=== PATIENT | female | born 1990 | race Hispanic/Latino ===

== ENCOUNTER 2018-01-25 10:25 | Emergency (ER) | payer SELFPAY ==
[2018-01-25] MEDS ORDERED: ONDANSETRON HCL 4 MG/2 ML VIAL ONE (10:43)
[2018-01-25] MEDS ORDERED: KETOROLAC TROMETHAMINE 30MG/ML ONE (10:44)
[2018-01-25 11:13] LABS: BASOPHILS % (AUTO) 0.5 % (0.0-5.0); EOSINOPHILS % (AUTO) 1.3 % (0.0-8.0); HEMATOCRIT 44.7 % (36-48); LYMPHOCYTES % (AUTO) 52.7 % (21.0-51.0); MEAN CORPUSCULAR HGB CONC 35.2 g/dL (32.0-36.0); MEAN CORPUSCULAR VOLUME 82.3 fL (79-99); MONOCYTES % (AUTO) 5.3 % (3.0-13.0); NEUTROPHILS % (AUTO) 40.2 % (40.0-77.0); PLATELET COUNT (AUTO) 316 K/uL (130-400); RED BLOOD CELL COUNT(AUTO) 5.44 MIL/uL (4.00-5.50); RED CELL DISTRIBUTION WIDTH 12.4 % (11.0-15.5); WHITE BLOOD COUNT (AUTO) 7.9 K/uL (4.8-10.8)
[2018-01-25 11:24] LABS: CREATININE 0.5 mg/dL (0.5-1.5); POTASSIUM 3.9 mmol/L (3.5-5.1)
[2018-01-25 11:24] LABS: APPEARANCE,URINE Clear (CLEAR); BILIRUBIN,URINE Negative (NEGATIVE); COLOR,URINE Yellow (YELLOW); GLUCOSE, URINE (UA) >=1000 mg/dL (NEGATIVE); KETONES,URINE >=80 mg/dL (NEGATIVE); LEUKOCYTE ESTERASE ,URINE Negative (NEGATIVE); NITRATE,URINE Negative (NEGATIVE); OCCULT BLOOD,URINE Negative (NEGATIVE); PH,URINE 5.5 (5.0-8.0); PROTEIN,URINE Negative (NEGATIVE)
[2018-01-25 11:29] LABS: ALBUMIN 3.7 g/dL (3.5-5.0); BILIRUBIN,DIRECT 0.1 mg/dL (0.0-0.3); BILIRUBIN,TOTAL 0.6 mg/dL (0.2-1.0); TOTAL PROTEIN, SERUM 8.4 g/dL (6.0-8.3)
[2018-01-25 11:30] LABS: AMPHET/METH SCREEN,URINE NEGATIVE (NEGATIVE); BARBITURATE SCREEN, URINE NEGATIVE (NEGATIVE); BENZODIAZEPINES SCREEN,URINE NEGATIVE (NEGATIVE); CANNABINOID SCREEN,URINE NEGATIVE (NEGATIVE); COCAINE SCREEN,URINE NEGATIVE (NEGATIVE); OPIATE SCREEN,URINE NEGATIVE (NEGATIVE); PHENCYCLIDINE SCREEN,URINE NEGATIVE (NEGATIVE)
[2018-01-25 11:39] LABS: BACTERIA,URINE Rare /HPF (None Seen); MUCUS,URINE Moderate LPF (None Seen); RBC,URINE None Seen /HPF (0-1); WBC,URINE None Seen /HPF (0-1); YEAST,URINE BUDDING Few /HPF (None Seen)
== END 2018-01-25 14:22 | disposition home or self-care (01) ==
LOC: EDH 10:25
DX: K80.50 Calculus of bile duct without cholangitis or cholecystitis without obstruction (principal)
CPT/HCPCS: 36415; 76705; 80048; 80076; 80305; 81001; 83690; 84702; 85025; 96374; 96375; 99285; J1885; J2405

== ENCOUNTER 2025-02-19 23:21 | Emergency (ER) | payer OTHER ==
[~2025-02-19] VITALS: Ht 152.4 cm; Wt 72.1 kg
[2025-02-20] MEDS ORDERED: ACYC-138 PO (00:21)
[2025-02-20] MEDS ORDERED: GABA-529 PO (00:21)
[2025-02-20] MEDS ORDERED: PRED20TA3 PO (00:21)
--- NOTE | 2025-02-20 00:21 | ERN ---
ED Note History of Present Illness Stated Complaint: C/O PAIN TO LEFT KNEE WITH BURNING SENSATION Chief Complaint: Knee Injury/Swelling Time Seen by MD: 23:24 Time Seen by Midlevel: 23:24 Dictation: The patient is a 34-year-old female with a history of diabetes who presents to the emergency department with complaints of burning to left knee and a rash. Patient reports she also has a rash to her upper leg and groin area. Patient reports symptoms started a week ago. Patient initially reported that she initially had sciatic nerve pain and then her knee started hurting and then she developed the blisters. Patient denies any fevers, denies any trauma Allergies: Coded Allergies: morphine (Unverified Allergy, Unknown, 02/19/25) Home Meds Active Scripts Gabapentin (Gabapentin) 100 Mg Capsule, 1 CAP PO TID for 30 Days, #90 CAP 0 Refi lls Prov:NAYA WANG [facility] 02/20/25 Prednisone (Prednisone) 20 Mg Tablet, 1 TAB PO DAILY for 5 Days, #5 TAB 0 Refills Prov:NAYA WANG [facility] 02/20/25 Acyclovir (Acyclovir) 800 Mg Tablet, 1 TAB PO 5XDAY for 6 Days, #35 TAB 0 Refills Prov:NAYA WANG [facility] 02/20/25 Past Medical History Past Medical History: Diabetes-Type II, High Cholesterol, Other Additional Past Medical Hx: HX OF SCIATIC NERVE PAIN Surgical History: Cholecystectomy LMP: Feb 16, 2025 RN Note Reviewed/Agreed w/PFSH: Yes Review of System Dictation Constitutional: Negative for fever,chills, and weight loss Eyes: Negative for injury, pain,redness, and discharge ENT: Negative for injury,pain or swelling Cardiovascular: Negative for chest pain, palpitations, and edema Respiratory: Negative for shortness of breath, cough, and wheezing, Abdomen/GI: Negative for abdominal pain, nausea, vomiting, diarrhea, and constipation Back: Negative for injury and pain : Negative for injury, bleeding and discharge MS/Extremity: Negative for injury and deformity Skin: Negative discoloration positive for rash Neuro: Negative for headache, weakness, numbness, tingling, and seizure Psych: Negative for suicide ideation, homicidal ideation, and hallucinations Initial Vital Sign VS Vital Signs Date Time Temp Pulse Resp B/P (MAP) Pulse Ox O2 Delivery O2 Flow Rate FiO2 02/19/25 23:23 97.0 89 20 119/81 96 Room Air 02/19/25 23:50 0 21 Physical Exam Dictation Vital Signs reviewed General Appearance: Alert, oriented x 3, no acute distress, well developed, nourished. Head and Face: non-traumatic. Eyes: PERRL, pink conjunctivas, eyelid no trauma, anterior chamber with arcus senilis. Ears: Pinnas intact and no signs of trauma or erythema ear canals clear and no discharge TM no erythema Nose: No discharge, no bleeding. Oropharynx: Mouth normal, tongue pink. pharynx clear,no erythema, tonsils no exudates, no abscesses noted, mucous membrane moist Neck: Supple, non-tender, no thyromegaly, no masses, no JVD, no bruits Breast:Deferred Chest:No tenderness, no crepitus, no paradoxical movement, no retractions Lungs:Clear, well-ventilated, symmetric, no rales, no wheezing, no rhonchi, no stridor, good breath sounds bilaterally Heart: Regular rate, regular rhythm, no murmur, no gallops Vascular: no peripheral edema, Abdomen: Soft, positive bowel sounds, nondistended, no guarding, nontender, no rebound, no masses no hepatomegaly, no splenomegaly, no Carreno's sign, no hernias. Rectal: Deferred Genital: Deferred Neurological: Normal speech, motor function intact, sensory function intact Musculoskeletal: Neck nontender, full range of motion, back nontender, full range of motion, Extremities: nontender, full range of motion Skin: Color pink, dry, no turgor, no lacerations, no abrasions, no contusions. Multiple blisters noted to left inner knee, no drainage, blisters noted to upper thigh and groin area Lymphatic: Deferred Results (Laboratory/Radiology) Laboratory/Radiology Laboratory Tests Test 02/19/25 23:46 Urine HCG, Qualitative NEGATIVE (NEGATIVE) Labs Reviewed?: Yes ED Course ED Course Orders Procedure Category Date Status Time ,Urine Test LAB 02/19/25 Complete 23:43 Ketorolac 60mg/2ml PHA 02/20/25 Complete (Toradol 60mg/2ml) 00:30 Acyclovir 800 Mg PHA 02/20/25 Complete Tablet (Zovirax 800mg 00:30 Current Medications Medications (Trade) Dose Ordered Sig/[place] Route PRN Reason Start Time Stop Time Status Last Admin Dose Admin Acyclovir (Zovirax 800mg Tab) 800 mg ONCE ONCE PO 02/20/25 00:30 02/20/25 00:31 DC 02/20/25 00:39 Ketorolac Tromethamine (toRADol 60MG/ 2ML) 60 mg ONCE ONCE IM 02/20/25 00:30 02/20/25 00:31 DC 02/20/25 00:40 Vital Signs Date Time Temp Pulse Resp B/P (MAP) Pulse Ox O2 Delivery O2 Flow Rate FiO2 02/19/25 23:50 97.2 84 18 137/80 99 Room Air* 0 21 02/19/25 23:23 97.0 89 20 119/81 96 Room Air Medical Decision Making MDM The patient is a 34-year-old female with a history of diabetes who presents to the emergency department with complaints of burning to left knee and a rash. Patient reports she also has a rash to her upper leg and groin area. Patient reports symptoms started a week ago. Patient initially reported that she initially had sciatic nerve pain and then her knee started hurting and then she developed the blisters. Patient denies any fevers, denies any trauma Patient with multiple blisters consistent with shingles. Patient will be treated with acyclovir. Patient in no acute distress, nontoxic appearance. Patient be discharged to follow up with PCP. Differential diagnosis: Shingles, arthritis, cellulitis Need for hospitalization: Patient does not meet criteria for hospitalization. There are no social concerns with this patient. DX & DISP Disposition: Discharge Departure Impression: Primary Impression: Shingles Condition: Stable Scripts Gabapentin (Gabapentin) 100 Mg Capsule 1 CAP PO TID for 30 Days, #90 CAP 0 Refills Prov: NAYA WANG 02/20/25 Prednisone (Prednisone) 20 Mg Tablet 1 TAB PO DAILY for 5 Days, #5 TAB 0 Refills Prov: NAYA WANG 02/20/25 Acyclovir (Acyclovir) 800 Mg Tablet 1 TAB PO 5XDAY for 6 Days, #35 TAB 0 Refills Prov: NAYA WANG 02/20/25 Additional Instructions: hugh tus medicamentos merrcik se te an recetado. Deveras checarte la azucar y controlarla porque los medicamentos pueden elevar tu azucar. Es importante que no tengas contacto con personas embarazados o que esten bajo en immunazion merrick es las personas de rosie edad y bebes recien nacidos porque es contagioso. Sigue con tu doctor de seguimiento en 1-2 m[place]clure. Si algo empeorar regresa a emergencia. FOLLOW-UP WITH PRIMARY CARE PROVIDER IN 1 TO 2 DAYS. TAKE MEDICATIONS DIRECTED HERE IN THE EMERGENCY ROOM. OKAY TO CONTINUE HOME MEDICATIONS UNLESS OTHERWISE DISCUSSED DURING YOUR VISIT IN THE EMERGENCY ROOM TODAY. RETURN TO YOUR NEAREST EMERGENCY ROOM IF SYMPTOMS WORSEN OR IF THERE IS NO IMPROVEMENT. CALL 911 IF YOU NEED IMMEDIATE ASSISTANCE. TAKE TYLENOL [id number] NEEDED AND IF NO CONTRAINDICATIONS ARE PRESENT. INCREASE ORAL HYDRATION. A WOUND CULTURE OR URINE CULTURE WAS ORDERED HERE IN THE EMERGENCY ROOM DEPARTMENT PLEASE FOLLOW-UP WITH PRIMARY CARE PROVIDER AND ADVISE THEM TO GET REPEAT PORTS FROM OUR FACILITY. IF YOU HAD ANY JOSUÉ WRAP/SPLINTS THAT WERE APPLIED HERE, PLEASE DO NOT REMOVE THEM UNTIL YOU SEE YOUR PRIMARY CARE OR SPECIALTY. Referrals: SELF,REFERRAL (PCP) Time of Disposition: 00:49 I have examined patient, & reviewed all documents, & agreed W/ the Diagnosis, and Plan NAYA WANG Feb 20, 2025 00:21
[2025-02-20] MEDS: ACYCLOVIR 800 MG TABLET PO ONE (00:39)
[2025-02-20 00:44] VITALS: BP 137/80; PULSE 84; RESP 18; TEMP 98.6; O2SAT 98
== END 2025-02-20 00:56 | disposition home or self-care (01) ==
LOC: EDH 23:21
DX: B02.9 Zoster without complications (principal); E11.9 Type 2 diabetes mellitus without complications; E78.00 Pure hypercholesterolemia, unspecified; Z88.5 Allergy status to narcotic agent; Z79.899 Other long term (current) drug therapy; Z79.52 Long term (current) use of systemic steroids; Z90.49 Acquired absence of other specified parts of digestive tract
CPT/HCPCS: 99283; 81025; 96372; J1885